=== PATIENT | male | born 1965 | race Caucasian/White ===

== ENCOUNTER → 2018-05-27 | Outpatient (REF) | LOC: M SMT 14:14 | DX: Z00.00 Encounter for general adult medical examination without abnormal findings (principal) ==

== ENCOUNTER → 2021-01-03 | Outpatient (CLI) | payer OTHER ==
[~2021-01-03] MED LIST: CYMB1CAP PO; CYMB60CA3 PO; GABA300C2 PO; INSUH10VL SQ; INSULANT SC; LEVEINJ SC; LISI5TAB PO; METF500T PO; NOVO1INJ4 SC; NYST50SS SS; SIMV20TA2 PO; ULTR50TA PO
--- NOTE | 2021-01-03 13:21 | REPVR ---
PROCEDURE INFORMATION: Exam: MR Lumbar Spine Without Contrast. Exam date and time: 01/03/2021 12:51 PM Age: 55 years old Clinical indication: Low back pain. TECHNIQUE: Imaging protocol: Multiplanar magnetic resonance images of the lumbar spine without contrast. COMPARISON: No prior MRI. FINDINGS: Vertebrae: Unremarkable. Spinal cord: Normal signal. No cord compression. L1-L2: There is degenerative disc disease including disc space narrowing and dessication. There is moderate disc bulging. There is facet arthropathy and ligamentum flavum hypertrophy. There is mild spinal canal stenosis. L2-L3: There is degenerative disc disease including disc space narrowing and dessication. There is mild disc bulging. Disc bulging extends into both neural foramen causing mild bilateral neural foraminal narrowing. There is facet arthropathy and ligamentum flavum hypertrophy. There is mild spinal canal stenosis. L3-L4: There is mild retrolisthesis at this level. There is disc desiccation. There is a moderate disc bulge with a small superimposed central disc herniation. Disc bulging extends into both neural foramen causing moderate bilateral neural foraminal narrowing. There is facet arthropathy and ligamentum flavum hypertrophy. There is mild/moderate spinal canal stenosis. L4-L5: There is disc desiccation. There is moderate disc bulging. Disc bulging extends into both neural foramen causing moderate bilateral neural foraminal narrowing. There is facet arthropathy and ligamentum flavum hypertrophy. There is mild spinal canal stenosis. L5-S1: There is mild disc bulging. Soft tissues: Unremarkable. Kidneys and ureters: There are high signal lesions in the right kidney, possibly cysts, but not fully characterized on this MRI exam. IMPRESSION: Multilevel degenerative changes causing variable degrees of spinal canal and neuroforaminal narrowing as described above. Electronically signed by: Mello Bolaños On 01/03/2021 13:21:19 PM
== END ==
LOC: M PLARAD 11:06
PROVIDERS: ATTEND Physician Assistant
DX: M51.37 Other intervertebral disc degeneration, lumbosacral region (principal); M48.07 Spinal stenosis, lumbosacral region